=== PATIENT | female | born 1960 | race Caucasian/White ===

== ENCOUNTER 2019-06-30 20:15 | Observation (INO) | payer BC ==
[~2019-06-30] VITALS: Ht 170.2 cm; Wt 65.8 kg
[2019-06-30 20:57] LABS: BASOPHILS % 0.5 % (0.0-1.0); EOSINOPHILS # (AUTO) 0.4 (0.0-0.4); EOSINOPHILS % 6.9 % (0.0-6.0); HEMOGLOBIN 16.9 g/dL (12.0-16.0); LYMPHOCYTES # (AUTO) 2.5 (1.0-3.2); LYMPHOCYTES % 43.6 % (18.0-39.1); MEAN CORPUSCULAR HEMOGLOBIN 31.2 pg (28-32); MEAN CORPUSCULAR HGB CONC 33.1 g/dL (31-35); MEAN CORPUSCULAR VOLUME 94.1 fL (81-99); MONOCYTES # (AUTO) 0.5 (0.2-0.8); NEUTROPHILS # (AUTO) 2.3 (2.1-6.9); NEUTROPHILS % 39.8 % (38.7-80.0); PLATELET COUNT 220 x10e3/uL (140-360); RED BLOOD COUNT 5.42 x10e6/uL (3.6-5.1); RED CELL DISTRIBUTION WIDTH 11.9 % (11.7-14.4)
[2019-06-30] MEDS ORDERED: CLONIDINE HCL 0.1 MG TAB ONE (21:09)
[2019-06-30] MEDS ORDERED: LISINOPRIL 10 MG TAB ONE (21:09)
[2019-06-30 21:12] LABS: INR 0.83; PROTHROMBIN TIME 11.9 seconds (11.9-14.5)
[2019-06-30 21:13] LABS: PARTIAL THROMBOPLASTIN TIME 39.4 seconds (23.8-35.5)
[2019-06-30 21:22] LABS: ALANINE AMINOTRANSFERASE 30 IU/L (0-55); ALBUMIN 4.4 g/dL (3.5-5.0); ALBUMIN/GLOBULIN RATIO 1.4 (0.8-2.0); ALKALINE PHOSPHATASE 89 IU/L (40-150); ANION GAP 13.9 mmol/L (8-16); BLOOD UREA NITROGEN 10 mg/dL (7-26); BUN/CREATININE RATIO 11 (6-25); CALCIUM 10.1 mg/dL (8.4-10.2); CARBON DIOXIDE 31 mmol/L (22-29); CHLORIDE 97 mmol/L (98-107); CREATINE KINASE 47 IU/L (29-168); CREATININE, SERUM 0.94 mg/dL (0.57-1.11); EST GLOMERULAR FILTRATION RATE > 60 ML/MIN (60-); GLUCOSE 99 mg/dL (74-118); POTASSIUM 3.9 mmol/L (3.5-5.1); SODIUM 138 mmol/L (136-145)
[2019-06-30 21:47] LABS: BILIRUBIN,URINE NEGATIVE (NEGATIVE); CLARITY,URINE CLEAR (CLEAR); COLOR,URINE YELLOW (YELLOW); KETONES,URINE NEGATIVE (NEGATIVE); LEUKOCYTE ESTERASE ,URINE NEGATIVE (NEGATIVE); NITRITE,URINE NEGATIVE (NEGATIVE); PROTEIN,URINE DIPSTICK NEGATIVE (NEGATIVE); URINE UROBILINOGEN 0.2 mg/dL (0.2 - 1)
[2019-06-30 21:50] LABS: BACTERIA,URINE MODERATE /HPF; EPITHELIAL CELLS,URINE MODERATE /LPF; RBC,URINE 0-5 /HPF (0-5)
--- NOTE | 2019-06-30 23:20 | Diagnostic Imaging Report ---
EXAMINATION: CHEST SINGLE (NOT PORTABLE) INDICATION: Chest palpitations COMPARISON: None FINDINGS: AP view TUBES and LINES: None. LUNGS: Lungs are well inflated. Lungs are clear. There is no evidence of pneumonia or pulmonary edema. PLEURA: No pleural effusion or pneumothorax. HEART AND MEDIASTINUM: The cardiomediastinal silhouette is nonenlarged. Thoracic aortic calcifications.. BONES AND SOFT TISSUES: No acute osseous lesion. Soft tissues are unremarkable. UPPER ABDOMEN: No free air under the diaphragm. IMPRESSION: No acute thoracic radiographic abnormality. Signed by: Xavier Wesley DO on 06/30/2019 11:17 PM
[2019-07-01] VITALS (8 sets, daily range): BP systolic 99–121; BP diastolic 64–85
--- NOTE | 2019-07-01 00:10 | NUR ---
PT CONVERTED TO SR REPEAT EKG PERORMED AND GIVEN TO [facility]
[2019-07-01] MEDS ORDERED: ONDANSETRON HCL INJ 2MG/ML 2ML 2 MG/ML VIAL IV PRN (00:30)
[2019-07-01] MEDS ORDERED: SODIUM CHLORIDE FLUSH 10 ML SYR INJ PRN (00:30)
--- OUTSIDE RECORDS SUMMARY | 2019-07-01 00:48 | XMS REPORT | Summary of Care ---
Author Author [facility] - Health Organization [facility] - Health Address Unknown Phone Unavailable Care Team Providers Care Washcoat Wiper Name Role Phone Seymour Moreno MD PCP Encounter Details Care Team Description Date Type Department Doctor Unassigned, [place] [address] [place] [address] 03/20/2019 Patient Secure [facility] [employer] Messages Msg [address] [place] [phone] Allergies Comments Active Allergy Reactions Severity Noted Date Soreness on tongue Sulfa (Sulfonamide Other - See 09/11/2018 Antibiotics) comments documented as of this encounter (statuses as of 04/20/2019) Medications End Date Status Medication Sig Dispensed Refills Start Date Active bimatoprost 0.03 % LIZBET TO LASHES 3 ophthalmic solution HS UTD 9 Active metoprolol succinate XL Take 1 tablet 180 tablet 1 (TOPROL XL) 50 mg 24 hr by mouth 2 9 tabletIndications: (two) times Essential hypertension daily. Active zolpidem 10 mg Take 1 tablet 30 tablet 3 tabletIndications: by mouth at 9 Primary insomnia bedtime. Active ezetimibe (ZETIA) 10 mg Take 1 tablet 90 tablet 1 tabletIndications: Pure by mouth 9 hypercholesterolemia daily. Active valACYclovir 1 gram 2 tablets BID 20 tablet 3 tabletIndications: Cold x 1 day prn 9 sore cold sore documented as of this encounter (statuses as of 04/20/2019) Active Problems No known active problemsdocumented as of this encounter (statuses as of 04/20/2019) Social History Date Tobacco Use Types Packs/Day Years Used Former Smoker 20 Smokeless Tobacco: Never Used Drinks/Week oz/Week Comments Alcohol Use No Sex Assigned at Date Recorded Not on file Industry Job Start Date Occupation Not on file Not on file Not on file Travel End Travel History Travel Start No recent travel history available. documented as of this encounter Last Filed Vital Signs Not on filedocumented in this encounter Plan of Treatment Health Maintenance Due Date Last Done Comments HEPATITIS C (HCV) SCREEN 1960 DTaP,Tdap,and Td Vaccines 1977 (1 - Tdap) PAP SMEAR 1979 MAMMOGRAM 1998 COLONOSCOPY 2008 Zoster Recombinant 2008 Vaccine (SHINGRIX) (1 of 2) LUNG CANCER SCREEN: 2013 Recommended for age 55-80 with 30 + pack year history INFLUENZA VACCINE 04/28/2019 (Retired version) PNEUMOCOCCAL 0-64 YEARS Aged Out No longer eligible based COMBINED SERIES on patient's age to complete this topic documented as of this encounter Results Not on filedocumented in this encounter Insurance Type Payer Benefit Subscriber ID Effective Phone Address Plan / Dates Group PPO/POS BC[place] OF [place] BCBS OF [id number] 2017-P [phone] [address] [facility] [id number] [place] [address] documented as of this encounter
--- OUTSIDE RECORDS SUMMARY | 2019-07-01 00:48 | XMS REPORT | Summary of Care ---
Author Author [facility] - Health Organization [facility] - Health Address Unknown Phone Unavailable Care Team Providers Care Yarn Salvager Name Role Phone Seymour Moreno MD PCP Encounter Details Care Team Description Date Type Department Doctor Unassigned, [place] [address] [place] [address] 03/05/2019 Patient Secure [facility] [employer] Messages Msg [address] [place] [phone] Allergies Comments Active Allergy Reactions Severity Noted Date Soreness on tongue Sulfa (Sulfonamide Other - See 09/11/2018 Antibiotics) comments documented as of this encounter (statuses as of 04/06/2019) Medications End Date Status Medication Sig Dispensed [...] as of this encounter (statuses as of 04/06/2019) Active Problems No known active problemsdocumented as of this encounter (statuses as of 04/06/2019) Social History Date Tobacco Use Types Packs/Day [...] + pack year history INFLUENZA VACCINE 04/28/2019 PNEUMOCOCCAL 0-64 YEARS Aged Out No longer eligible based COMBINED SERIES on patient's age to complete this topic documented as of this encounter Results Not on filedocumented in this encounter Insurance Type Payer Benefit Subscriber ID Effective Phone Address Plan / Dates Group PPO/POS BCBS OF [place] BCBS OF [id number] 2017-P [phone] [address] [facility] [id number] [place] [address] documented as of this encounter
--- OUTSIDE RECORDS SUMMARY | 2019-07-01 00:48 | XMS REPORT | Summary of Care ---
Author Author [facility] - Health Organization [facility] - Health Address Unknown Phone Unavailable Care Team Providers Care Casket Inspector Name Role Phone Seymour Moreno MD PCP Encounter Details Care Team Description Date Type Department Roxie Acuña MD [address] [place] [id number] Acquired hypothyroidism (Primary Dx); Primary insomnia; Chronic constipation 04/03/2019 Patient Secure [facility], [address] [phone] Allergies Comments Active Allergy Reactions Severity Noted Date Soreness on tongue Sulfa (Sulfonamide Other - See 09/11/2018 Antibiotics) comments documented as of this encounter (statuses as of 04/03/2019) Medications End Date Status Medication Sig Dispensed [...] 1 day prn 9 sore cold sore Active levothyroxine 100 mcg Take 1 tablet 90 tablet 1 tabletIndications: by mouth 9 Acquired hypothyroidism every morning. Active AMITIZA 24 mcg Take 1 180 capsule 1 capsuleIndications: capsule by 9 Chronic constipation mouth 2 (two) times daily with meals. 04/03/2019 Discontinued lubiprostone 24 mcg Take 1 180 capsule 3 capsuleIndications: capsule by 9 Chronic constipation mouth 2 (two) times daily with meals. 04/03/2019 Discontinued levothyroxine 125 mcg Take 1 tablet 90 tablet 0 tablet by mouth 9 every morning. documented as of this encounter (statuses as of 04/03/2019) Active Problems No known active problemsdocumented as of this encounter (statuses as of 04/03/2019) Social History Date Tobacco Use Types Packs/Day [...] Results Not on filedocumented in this encounter Visit Diagnoses Diagnosis Acquired hypothyroidism - Primary Unspecified hypothyroidism Primary insomnia Persistent disorder of initiating or maintaining sleep Chronic constipation Unspecified constipation documented in this encounter Insurance Type Payer Benefit Subscriber ID Effective Phone Address Plan / Dates Group PPO/POS BCBS OF [place] BCBS OF [id number] 2017-P [phone] [address] [facility] [address] [place] [address] documented as of this encounter
--- OUTSIDE RECORDS SUMMARY | 2019-07-01 00:48 | XMS REPORT ---
Author [facility] Address Unknown Phone Unavailable Care Team Providers Care Risk And Compliance Analytics Director Name Role Phone Ashley DOAN Unavailable Unavailable Problems This patient has no known problems. Allergies, Adverse Reactions, Alerts This patient has no known allergies or adverse reactions. Medications This patient has no known medications. Results Test Description Test Time Test Comments Text Results Atomic Results Result Comments CHEST SINGLE (NOT PORTABLE) 2019-06-30 23:16:00 [facility] [address] [address] Patient Name: LUIS ESCAMILLA MR #: [id number] : 1960 Age/Sex: 59/F Req #: [id number] Adm Physician: Ordered by: NICOLE DOAN MD Report #: [id number] Location: ER Room/Bed: Procedure: [id number] DX/CHEST SINGLE (NOT PORTABLE) Exam Date: 06/30/19 Exam Time: 6 REPORT STATUS: Signed EXAMINATION: CHEST SINGLE (NOT PORTABLE) INDICATION: Chest palpitations COMPARISON: None FINDINGS: AP view TUBES and LINES: None. LUNGS: Lungs are well inflated. Lungs are clear. There is no evidence of pneumonia or pulmonary edema. PLEURA: No pleural effusion or pneumothorax. HEART AND MEDIASTINUM: The cardiomediastinal silhouette is nonenlarged. Thoracic aortic calcifications.. BONES AND SOFT TISSUES: No acute osseous lesion. Soft tissues are unremarkable. UPPER ABDOMEN: No free air under the diaphragm. IMPRESSION: No acute thoracic radiographic abnormality. Signed by: Xavier Wesley DO on 06/30/2019 11:17 PM Dictated By: XAVIER WESLEY DO 16 Transcribed By: TIBURCIO on 06/30/192316 COPY TO: NICOLE DOAN MD
--- OUTSIDE RECORDS SUMMARY | 2019-07-01 00:48 | XMS REPORT | Summary of Care ---
Author Author [facility] - Health Organization [facility] - Health Address Unknown Phone Unavailable Care Team Providers Care Clinical Nurse Manager Name Role Phone Seymour Moreno MD PCP Encounter Details Care Team Description Date Type Department Doctor Unassigned, [place] [address] [place] [address] 03/05/2019 Patient Secure [facility] [employer] Messages Msg [address] [place] [phone] Allergies Comments Active Allergy Reactions Severity Noted [...] Plan / Dates Group PPO/POS BCBS OF [place] BCBS OF [id number] 2017-P [phone] [address] [facility] [id number] [place] [address] documented as of this encounter
[2019-07-01] MEDS ORDERED: METOPROLOL SUCC50 MG PO ×2 (00:51→17:48)
[2019-07-01] MEDS ORDERED: AMITIZA24 MCG PO (00:51)
[2019-07-01] MEDS ORDERED: LEVOTHYROXINE100 MC1 PO (00:51)
[2019-07-01] MEDS ORDERED: ZETIA10 MG PO (00:52)
[2019-07-01] MEDS ORDERED: AMBIEN10 MG PO (00:52)
--- NOTE | 2019-07-01 01:25 | NUR ---
Patient was brought from ER In a stretcher with new onset a fib.aaox4.ambulatory.admission assessment done.iv to left ac#18 g patent.tele #[address] showing sr[address]oriented to the unit.bed locked and in lowest position.phone and call light within reach.instructed to call for asistance as needed.keep monitor the pt.as per the report from ER cardiology consults has been called.
[2019-07-01] MEDS ORDERED: LEVOTHYROXINE SODIUM 100 MCG TAB PO SCH (06:00)
[2019-07-01 06:12] LABS: CREATINE KINASE 34 IU/L (29-168)
--- NOTE | 2019-07-01 06:28 | NUR ---
Tried to reach out .but did not pharmacy picking technician phone.
--- NOTE | 2019-07-01 07:00 | NUR ---
Bed side shift report given to the oncoming Rn.stable condition.
--- NOTE | 2019-07-01 07:51 | NUR ---
H&P cc: chest palpitation HPI: 59yoF, PCP none, had spicy foods, started vomiting, then developed chest palpitations. PMH: HTN, HLD, Hypothyroidism, hx cigarette PSHx: hysterectomy, thyroid Allergies; see MAR FH/SH; quit cigs; ; 20pk years cigs. Meds; see MAR ROS: no f/c/s/N/V/D/CORTEZ/vision changes/sob/back pain/skin rash v/s revd PE tired appearing anicteric ns1s2 mod bs soft nt nd no e/t skin dry vision normal n. mood labs/meds revd A/P: 59yoF New onset A.fib Hypothyroidism UTI HTN HLD PLAN IV abx BB f/u cardio eval check TSH Christian Angulo MD, PhD.
[2019-07-01] MEDS ORDERED: CEFTRIAXONE SOD 1 GM/NS 50 ML 50 ML IV SCH (08:00)
[2019-07-01 08:32] LABS: CHOL/HDL RATIO 5.6 (3.0-3.6)
[2019-07-01 08:41] LABS: CREATINE KINASE 26 IU/L (29-168)
[2019-07-01 08:52] LABS: THYROID STIMULATING HORMONE 1.51 uIU/mL (0.350-4.940)
[2019-07-01] MEDS ORDERED: METOPROLOL SUCCINATE 50 MG TAB XL PO SCH (09:00)
[2019-07-01] MEDS ORDERED: EZETIMIBE 10 MG TAB PO SCH (09:00)
[2019-07-01] MEDS ORDERED: ASPIRIN 81 MG ENTERIC COATED PO SCH (09:00)
[2019-07-01] MEDS ORDERED: SODIUM CHLORIDE 0.9% 250ML 250 ML ONE (10:59)
[2019-07-01] MEDS: LUBIPROSTONE 24 MCG CAP PO SCH ×2 (11:30→17:24)
[2019-07-01 14:06] LABS: CREATINE KINASE 27 IU/L (29-168)
[2019-07-01] MEDS ORDERED: MULTAQ 400MG T400 MG PO (17:47)
[2019-07-01] MEDS ORDERED: ASPIRIN81 MG PO (17:48)
[2019-07-01] MEDS ORDERED: ZOLPIDEM TARTRATE 10 MG TAB PO SCH (21:00)
--- NOTE | 2019-07-02 00:48 | Consultation ---
DATE OF CONSULTATION: 07/01/2019 Cardiology Consult Note REASON FOR CONSULT: Atrial fibrillation with RVR. CHIEF COMPLAINT: Palpitations and shortness of breath. HISTORY OF PRESENT ILLNESS: The patient is a 59-year-old female with history of thyroid disease, status post thyroidectomy, on thyroid replacement, hypertension, and hyperlipidemia, who presents from home with sudden onset of palpitations and shortness of breath after she had an episode of vomiting after eating something spicy. Denies any previous history of atrial fibrillation, when she presented to the ER, and was noted to be in atrial fibrillation with RVR, spontaneously converted after being in the hospital for about 3 hours. Currently, remains in sinus rhythm. Denies any chest pain, shortness of breath, or heart failure symptoms. The patient is otherwise healthy. No history of strokes. PAST MEDICAL HISTORY: Hypertension, hyperlipidemia, and hypothyroidism, on thyroid replacement. SOCIAL HISTORY: The patient has history of smoking, not a current smoker. No significant alcohol use. No drug use. REVIEW OF SYSTEMS: As per HPI, otherwise negative. FAMILY HISTORY: Noncontributory. OUTPATIENT MEDICATIONS: Reviewed. Please see ELIZABETH. ALLERGIES: REVIEWED. PLEASE SEE MAR. PHYSICAL EXAMINATION: VITAL SIGNS: Temperature afebrile, pulse 68, respiratory rate 17, blood pressure 108/75, and saturating 97% on room air. GENERAL: Middle-aged female in no acute distress. CARDIOVASCULAR: Regular rate and rhythm. No murmurs, rubs, or gallops. LUNGS: Clear to auscultation bilaterally. ABDOMEN: Soft, nontender, and nondistended. NEURO AND PSYCH: Alert and oriented to person, place, and time. Normal affect. INPATIENT MEDICATIONS: Reviewed. LABORATORY DATA: Reviewed. TELEMETRY DATA: Reviewed shows normal sinus rhythm. Initial rhythm was atrial fibrillation with rapid ventricular response. ASSESSMENT: 1. Paroxysmal atrial fibrillation, new onset. 2. Hypertension. 3. Hyperlipidemia. PLAN: CHADS2-VASc score is only 2 for her gender and for hypertension. Discussed long-term anticoagulation with the patient. The patient is very hesitant. Her benefit from therapeutic anticoagulation is borderline given low CHADS2-VASc score. The patient is agreeable to taking aspirin for now. We will also try to add dronedarone to her regimen to maintain normal sinus rhythm. Follow up with Endocrinology to ensure that thyroid function is within normal limits. She will see me in clinic 1 to 2 weeks post discharge. She is okay to be discharged for now from cardiovascular standpoint. Thank you for this consult. We will continue to follow. MD LILIA Calle/JAMISONL /[id number]
--- NOTE | 2019-07-02 11:02 | NUR ---
D/C summary Principal Dx: New onset A.fib UTI SEcondary Dx: Hypothyroidism HTN HLD PLAN IV abx BB f/u cardio eval check TSH d/c home on aspirin f/u pcp 1 week and cardiology 2 weeks stable d/c>35mins Christian Angulo MD, PhD.
== END 2019-07-01 18:05 | disposition home or self-care (01) ==
LOC: ER 20:15 → ERHOLD 07-01 00:46 → MED/SURG 07-01 01:31
PROVIDERS: ADMIT Internal Medicine; ATTEND Internal Medicine
DX: I48.91 Unspecified atrial fibrillation (principal); E03.9 Hypothyroidism, unspecified; N39.0 Urinary tract infection, site not specified; I10 Essential (primary) hypertension; F17.210 Nicotine dependence, cigarettes, uncomplicated; E78.5 Hyperlipidemia, unspecified
CPT/HCPCS: 36415 ×2; 71045; 80053; 80061; 81001; 82550 ×2; 82553 ×2; 83880; 84443; 84484 ×2; 85025; 85610; 85730; 93005; 93306; 99284; G0378; J0696; J7050